=== PATIENT | female | born 1970 | race Caucasian/White ===

== ENCOUNTER → 2017-09-01 | Outpatient (CLI) | payer OTHER ==
[~2017-09-01] MED LIST: ALPR0.25 PO; BIOT10TA PO; CETI10 PO; EZET10 PO; FEXO15TA PO; FEXO180; IBUP1TAB7 PO; LEXA10TA PO; MULTTAB24 PO; ZEGE20CA4 PO
[2017-09-01 13:29] LABS: AUTOMATED NEUTROPHIL # 3.5 TH/MM3 (1.8-7.7); BASOPHIL % 0.9 % (0.0-2.0); EOSINOPHIL # 0.1 TH/MM3 (0-0.4); EOSINOPHIL % 1.6 % (0.0-4.0); HEMATOCRIT 37.4 % (35.0-46.0); HEMO FLAGS DIFF FINAL; LYMPH % 28.1 % (9.0-44.0); LYMPHOCYTE # 1.5 TH/MM3 (1.0-4.8); MEAN CELL VOLUME 97.1 FL (80.0-100.0); MEAN CORPUSCULAR HEMOGLOBIN 32.6 PG (27.0-34.0); MEAN CORPUSCULAR HGB CONC 33.5 % (32.0-36.0); MONO % 6.6 % (0.0-8.0); NEUT % 62.8 % (16.0-70.0); PLATELET COUNT 250 TH/MM3 (150-450); RED BLOOD COUNT 3.85 MIL/MM3 (4.00-5.30); WHITE BLOOD COUNT 5.5 TH/MM3 (4.0-11.0)
[2017-09-01 13:37] LABS: BLOOD, URINE SMALL (NEG); COMMENT (UR) CULT NOT INDICATED; CULTURE IF INDICATED CULT NOT INDICATED; GLUCOSE,URINE NEG (NEG); KETONE, URINE NEG (NEG); MUCUS URINE FEW /lpf (OCC); NITRITE,URINE NEG (NEG); PH, URINE 6.5 (5.0-8.5); SQUAMOUS EPITHELIAL CELL URINE 1 /hpf (0-5); URINE COLOR LIGHT-YELLOW (YELLW/STRAW)
[2017-09-01 13:48] LABS: ANION GAP 7 MEQ/L (5-15); AST (GOT) 21 U/L (15-37); BICARBONATE 28.4 MEQ/L (21.0-32.0); BLOOD UREA NITROGEN 13 MG/DL (7-18); CHLORIDE 103 MEQ/L (98-107); GLOMERULAR FILTRATION RATE 80 ML/MIN (>89); GLUCOSE,FASTING 89 MG/DL (74-99); POTASSIUM 3.9 MEQ/L (3.5-5.1); SODIUM (NA) 138 MEQ/L (136-145)
[2017-09-01 13:49] LABS: ALT (GPT) 32 U/L (10-53)
[2017-09-01 13:53] LABS: ALKALINE PHOSPHATASE 39 U/L (45-117); TOTAL BILIRUBIN ADULT 0.4 MG/DL (0.2-1.0)
[2017-09-01 14:06] LABS: BHCG SCREEN QUALITATIVE LESS THAN 1 MIU/ML (0-5)
== END ==
LOC: CPRE 12:48
PROVIDERS: ATTEND Obstetrics & Gynecology
DX: Z01.812 Encounter for preprocedural laboratory examination (principal); R93.8 Abnormal findings on diagnostic imaging of other specified body structures; N92.0 Excessive and frequent menstruation with regular cycle; D25.9 Leiomyoma of uterus, unspecified
CPT/HCPCS: 36415; 80053; 81001; 84703; 85025

== ENCOUNTER 2017-09-08 06:07 | Observation (INO) | payer OTHER ==
[~2017-09-08] VITALS: Ht 165.1 cm; Wt 64.7 kg
[~2017-09-08 06:07] MED LIST changes: -FEXO15TA PO; -FEXO180
[2017-09-08] MEDS ORDERED: METOPROLOL TARTRATE 25 MG TAB PO PRN (07:00)
[2017-09-08] MEDS ORDERED: SODIUM CHLORID 0.9% 500 ML IV PRN (07:00)
[2017-09-08] MEDS ORDERED: LACTATED RINGER'S 1000 ML IV PRN (07:00)
[2017-09-08] MEDS ORDERED: POVIDONE IODINE 5% (ANTISEPSIS KIT) 4 APPLICATIONS EACH NARE PRN (07:00)
[2017-09-08] MEDS ORDERED: CHLORHEXIDINE GLUCONATE 2 % 1 PACK (2 CLOTHS) TOPICAL PRN (07:00)
[2017-09-08] MEDS ORDERED: ESTROGENS CONJUGATED VAG CREA 15 APPL/30 GM TUBE ONE (07:05)
[2017-09-08] MEDS ORDERED: APREPITANT 40 MG CAP ONE (07:54)
[2017-09-08] MEDS ORDERED: ACETAMINOPHEN 1000 MG/100 ML 100 ML IV ONE (07:54)
[2017-09-08] MEDS ORDERED: MORPHINE SULFATE 8 MG/ML INJ ONE ×2 (10:50→10:57)
[2017-09-08] MEDS ORDERED: SODIUM CHLORIDE 0.9% FLUSH 10 ML FLUSH IV FLUSH PRN (11:00)
[2017-09-08] MEDS ORDERED: oxyCODONE/ACETAMINOPHEN 5 MG/325 MG TAB PO PRN (11:00)
[2017-09-08] MEDS ORDERED: MORPHINE SULFATE 2 MG/ML INJ IV PUSH PRN (11:00)
[2017-09-08] MEDS ORDERED: ONDANSETRON HCL 4 MG/2 ML VIAL IVP PRN (11:00)
[2017-09-08] MEDS ORDERED: ZOLPIDEM TARTRATE 5 MG TAB PO PRN (11:00)
--- NOTE | 2017-09-08 11:20 | PD.OP ---
Operative Report Date of Surgery: Sep 08, 2017 Preoperative Diagnosis: Menorrhagia, thickened endometrium severe dysmenorrhea, uterine fibroids, lesion of the left left vulva Postoperative Diagnosis: Same Procedure: Examination under anesthesia Left vulvar biopsy D&C with a negative frozen section Laparoscopic assisted vaginal hysterectomy Bilateral salpingectomy Anesthesia: Gen. endotracheal intubation Surgeon: Rafael Berrios M.D. Graphic Engineer(s): Tracey Tyson Operation and Findings: Examination under anesthesia revealed a markedly enlarged uterus to 10-12 weeks size D&C revealed feels small amount of tissue frozen section was negative Laparoscopic exam revealed a fibroid uterus with multiple exophytic fibroids there is also a fibroid in the right broad ligament the fallopian tubes were normal in length and caliber the ovaries were normal the posterior and anterior cul-de-sacs were clean there was some adhesions of bowel to the anterior abdominal wall on the left side which were not taken down the upper abdomen and liver and gallbladder looks normal Patient was taken to the operating theater and identified by name band and verbally given a general anesthetic and prepped and draped in the usual sterile fashion in the dorsal lithotomy position. The Strong catheter was inserted. A timeout was taken and once confirmed examination under anesthesia was carried out with the above findings. A weighted speculum was placed into the vagina the anterior lip of the cervix was grasped with a single-tooth tenaculum and the cervix was serially dilated. Curettage of the uterus was carried out and the specimen sent for frozen section in the event that we would need to bisect this large uterus and remove it vaginally. A V care device was then placed without difficulty the uterus sounded to 7 cm. Attention was turned to the area where a small incision was made and a 5 mm trocar was placed into the peritoneal cavity without difficulty and pneumoperitoneum was created with 3 L of CO2. The second and third punctures were then accomplished inferior lateral to the umbilicus bilaterally and pictures were taken and the round ligaments were taken and a bladder flap created without difficulty. Attention was turned to the fallopian tubes and they were taken down along the mesial salpinx without difficulty we took down the utero-ovarian ligaments and the broad ligament to the level of the internal cervical os. On the left side the vessels were taken with the Harmonic scalpel without difficulty on the right side there was a large broad ligament fibroid which was skeletonized and the uterine vessels in this area the level of the internal cervical os were skeletonized and taken with the Harmonic scalpel latter flap was more fully developed and the cardinal ligament was taken down with the scalpel until we could see the V care device care device was supple and the vagina was opened up with the Harmonic scalpel the vagina was incised sharply with the Harmonic scalpel circumferentially around the V care device without difficulty once this is accomplished I went below and the V care device fully removed from the vagina during this the care device came out of the uterus and the uterine cervix was grasped with a double-tooth tenaculum and gently delivered through the vagina without difficulty the vaginal cuff was then closed with 0 Vicryl pop offs in an interrupted manner with excellent results of vagina was washed with large amount of fluids and changed my gloves and went back to the laparoscope everything looked really dry and under laparoscopic visualization I tried to plicate the uterosacral vaginally or Vicryl pop-off at this point everything looked dry the air was released the laparoscope was removed under direct vision and the skin incisions were repaired with a 4-0 Monocryl in a subcuticular fashion she tolerated the procedure well and went to the recovery room in good condition. She did get IV Tylenol and ketorolac in the operating theater. Tangela Brerios MD Sep 08, 2017 11:20
[2017-09-08] MEDS ORDERED: *morphine SULFATE 8 MG/ML PERIprocedure ONLY ONE (11:24)
[2017-09-08] MEDS ORDERED: ROCURONIUM INJ 50 MG/5 ML SYRINGE IV PUSH ONE (12:00)
[2017-09-08] MEDS ORDERED: NEOSTIGMINE 5 MG/5 ML SYRINGE IV PUSH ONE (12:00)
[2017-09-08] MEDS ORDERED: DEXAMETHASONE SOD PHOS 4 MG/ML VIAL IV ONE (12:00)
[2017-09-08] MEDS ORDERED: PROPOFOL 200 MG/20 ML AMP IV ONE (12:00)
[2017-09-08] MEDS ORDERED: LACTATED RINGER'S 1000 ML INJ 1,000 ML IV ONE (12:00)
[2017-09-08] MEDS ORDERED: GLYCOPYRROLATE 1 MG/5 ML SYRINGE IV PUSH ONE (12:00)
[2017-09-08] MEDS ORDERED: ONDANSETRON HCL 4 MG/2 ML VIAL IV ONE (12:00)
[2017-09-08] MEDS ORDERED: KETOROLAC TROMETHAMINE 30 MG/ML (IVP) VIAL IV PUSH ONE (12:00)
[2017-09-08] MEDS ORDERED: SUCCINYLCHOLINE CHLORIDE 100 MG/5 ML SYRINGE IV PUSH ONE (12:00)
[2017-09-08] MEDS ORDERED: LIDOCAINE HCL 1% PF 5 ML SYRINGE OTHER ONE (12:00)
[2017-09-08] MEDS ORDERED: ceFAZolin INJ 1,000 MG VIAL IV ONE (12:00)
[2017-09-08 12:11] VITALS: BP 119/68; PULSE 79; RESP 15; TEMP 97.9; O2SAT 98
[2017-09-08] MEDS: IBUPROFEN 600 MG TAB PO PRN ×2 (12:59→21:12)
[2017-09-08] MEDS: oxyCODONE/ACETAMINOPHEN 5 MG/325 MG TAB PO PRN ×3 (12:59→21:13)
[2017-09-08] MEDS ORDERED: diphenhydrAMINE HCL 50 MG/ML VIAL IV PUSH ONE (13:00)
[2017-09-08 16:00] VITALS: BP 105/56; PULSE 76; RESP 15; TEMP 97.5; O2SAT 95
[2017-09-08] MEDS: LACTATED RINGER'S 1000 ML INJ 1,000 ML IV SCH (16:50)
[2017-09-08 20:00] VITALS: BP 105/65; PULSE 71; RESP 18; TEMP 97.6; O2SAT 94
[2017-09-08] MEDS ORDERED: SODIUM CHLORIDE 0.9% FLUSH 10 ML FLUSH IV FLUSH SCH (21:00)
[2017-09-08] MEDS: DOCUSATE SODIUM 100 MG CAP PO SCH (21:10)
[2017-09-09] VITALS: BP 105/65; PULSE 72; RESP 16; TEMP 98.1; O2SAT 95
[2017-09-09] MEDS: LACTATED RINGER'S 1000 ML INJ 1,000 ML IV SCH (01:56)
[2017-09-09 04:00] VITALS: BP 109/74; PULSE 77; RESP 18; TEMP 98; O2SAT 97
[2017-09-09] MEDS: oxyCODONE/ACETAMINOPHEN 5 MG/325 MG TAB PO PRN ×2 (05:57→09:47)
[2017-09-09] MEDS: IBUPROFEN 600 MG TAB PO PRN ×3 (05:58→11:50)
[2017-09-09 06:14] LABS: AUTOMATED NEUTROPHIL # 6.5 TH/MM3 (1.8-7.7); BASOPHIL % 0.2 % (0.0-2.0); EOSINOPHIL % 0.3 % (0.0-4.0); HEMATOCRIT 33.7 % (35.0-46.0); HEMO FLAGS DIFF FINAL; LYMPH % 18.9 % (9.0-44.0); LYMPHOCYTE # 1.7 TH/MM3 (1.0-4.8); MEAN CELL VOLUME 96.8 FL (80.0-100.0); MEAN CORPUSCULAR HEMOGLOBIN 33.4 PG (27.0-34.0); MEAN CORPUSCULAR HGB CONC 34.5 % (32.0-36.0); MONO % 7.7 % (0.0-8.0); NEUT % 72.9 % (16.0-70.0); PLATELET COUNT 214 TH/MM3 (150-450); RED BLOOD COUNT 3.48 MIL/MM3 (4.00-5.30); WHITE BLOOD COUNT 8.9 TH/MM3 (4.0-11.0)
[2017-09-09 06:27] LABS: BICARBONATE 28.8 MEQ/L (21.0-32.0)
[2017-09-09 08:49] VITALS: BP 128/85; PULSE 78; RESP 18; TEMP 98.1; O2SAT 99
--- NOTE | 2017-09-09 08:55 | HHI.PR ---
Subjective Remarks Doing well, pain is well controlled, eating well. Objective Vital Signs Vital Signs Date Time Temp Pulse Resp B/P (MAP) Pulse Ox O2 Delivery O2 Flow Rate FiO2 09/09/17 08:49 98.1 78 18 128/85 (99) 99 09/09/17 04:00 98.0 77 18 109/74 (86) 97 09/09/17 00:00 98.1 72 16 105/65 (78) 95 09/08/17 20:00 97.6 71 18 105/65 (78) 94 09/08/17 16:00 97.5 76 15 105/56 (72) 95 09/08/17 12:11 97.9 79 15 119/68 (85) 98 09/08/17 11:45 97.9 95 10 118/67 (84) 98 Nasal Cannula 2 09/08/17 11:30 86 12 119/67 (84) 95 Nasal Cannula 2 09/08/17 11:15 89 12 129/74 (92) 95 09/08/17 11:00 81 11 133/82 (99) 96 Nasal Cannula 2 09/08/17 10:44 97.7 108 10 123/81 (95) 16 Room Air I/O 09/08/17 09/08/17 09/08/17 09/09/17 09/09/17 09/09/17 07:00 15:00 23:00 07:00 15:00 23:00 Intake Total 1400 ml 480 ml Output Total 295 ml 800 ml 1200 ml Balance 1105 ml -800 ml -720 ml Intake Oral 480 ml Other 1400 ml Output Urine Total 275 ml 800 ml 1200 ml Estimated Blood Loss 20 ml # Voids 1 Result Diagram: 09/09/17 0503 09/09/17 0503 Objective Remarks Chest is clear, regular rate and rhythm. Abdomen is soft and non-distended. Incision is clean and dry. Ext no CCE. A/P Assessment and Plan Post Op Day 1 Doing well Home today and return to office in one to two weeks. Tangela Berrios MD Sep 09, 2017 08:55
[2017-09-09] MEDS ORDERED: ESCITALOPRAM OXALATE 10 MG TAB PO SCH (09:00)
[2017-09-09] MEDS ORDERED: CETIRIZINE HCL 10 MG TAB PO SCH (09:00)
[2017-09-09] MEDS ORDERED: SODIUM BICARBONATE PO SCH (09:00)
[2017-09-09] MEDS ORDERED: OMEPRAZOLE PO SCH (09:00)
[2017-09-09] MEDS: DOCUSATE SODIUM 100 MG CAP PO SCH (09:45)
[2017-09-09] MEDS ORDERED: PNEUMOCOCCAL POLYVALENT INJ 25 MCG/0.5 ML SYR IM ONE (10:00)
== END 2017-09-09 12:05 | disposition home or self-care (01) ==
LOC: HSDC 06:07 → HSDI 11:05 → H1EA 11:52
PROVIDERS: ADMIT Obstetrics & Gynecology; ATTEND Obstetrics & Gynecology
DX: N92.0 Excessive and frequent menstruation with regular cycle (principal); N94.6 Dysmenorrhea, unspecified; D25.9 Leiomyoma of uterus, unspecified; K66.0 Peritoneal adhesions (postprocedural) (postinfection); D28.0 Benign neoplasm of vulva; R93.8 Abnormal findings on diagnostic imaging of other specified body structures
CPT/HCPCS: 00840; 58552; 80048; 85025; 86850; 86900; 86901; 88305; 88307; 88331; 94150; 96374; C1765; G0378; J0131; J1200; J2270; J7120; J8501; J0330; J0690; J1100; J1885; J2405; J2710; J3010